=== PATIENT | male | born 1985 | race Caucasian/White ===

== ENCOUNTER 2019-07-16 15:27 | Emergency (ER) | payer OTHER ==
[~2019-07-16] VITALS: Ht 188 cm; Wt 81.6 kg
--- NOTE | 2019-07-16 15:35 | NUR ---
BIB SELF C/O R HIP PAIN STARTED 2 DAYS AGO, DENIES INJURY, TO ER BED 10, HOOKED TO MONITOR AND POX, CHANGED TO HOSP GOWN, WARM BLANKET PROVIDED, PATIENT AAO x 4, BREATHING EVEN AND UNLABORED. AWAITING MD DUNBAR.
--- NOTE | 2019-07-16 15:48 | NUR ---
DIELECTRIC TESTING MACHINE OPERATOR AT BEDSIDE FOR US
--- NOTE | 2019-07-16 16:02 | NUR ---
DEPALLETIZER OPERATOR AT BEDSIDE FOR XRAY
[2019-07-16 17:04] LABS: BASOPHILS % (AUTO) 0.4 % (0.0-2.0); EOSINOPHILS % (AUTO) 3.6 % (0.0-6.0); HEMATOCRIT 44 % (39-51); LYMPHOCYTES # (AUTO) 1.7 /CMM (0.8-4.8); LYMPHOCYTES % (AUTO) 21.5 % (20.0-44.0); MEAN CORPUSCULAR HGB CONC 34 g/dl (31.0-36.0); MEAN CORPUSCULAR VOLUME 91 fL (80-96); MONOCYTES # (AUTO) 0.8 /CMM (0.1-1.30); MONOCYTES % (AUTO) 10.2 % (2.0-12.0); NEUTROPHILS # (AUTO) 5.2 /CMM (1.8-8.9); NEUTROPHILS % (AUTO) 64.3 % (43.0-81.0); PLATELET COUNT (AUTO) 192 /CMM (150-450); RED BLOOD CELL COUNT(AUTO) 4.88 MIL/uL (4.5-6.0); WHITE BLOOD COUNT (AUTO) 8.1 K/uL (4.3-11.0)
[2019-07-16 17:11] LABS: CREATININE 1.1 mg/dL (0.6-1.3); POTASSIUM 3.7 mmol/L (3.5-5.1)
[2019-07-16] MEDS ORDERED: IBUPROFEN 600 MG TABLET PO ONE ×2 (18:00→18:03)
--- NOTE | 2019-07-16 18:11 | NUR ---
TECH AT BEDSIDE FOR PLACEMENT OF JOSE WRAP AT R UPPER THIGH.
[2019-07-16 18:14] VITALS: BP 124/61
== END 2019-07-16 18:14 | disposition home or self-care (01) ==
LOC: ER 15:33
DX: M25.551 Pain in right hip (principal); M79.651 Pain in right thigh
CPT/HCPCS: 36415; 73502; 80048; 85025; 93971; 99285; L3763